=== PATIENT | male | born 1990 | race American Indian/Alaskan Native ===

== ENCOUNTER 2016-08-16 08:13 | Emergency (ER) | payer SELFPAY ==
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
[2016-08-16] MEDS ORDERED: MOTRIN PO ONE (11:16)
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
[2016-08-16 12:55] VITALS: BP 119/75
== END 2016-08-16 12:56 | disposition home or self-care (01) ==
LOC: ED 08:13
DX: H57.12 Ocular pain, left eye (principal); I10 Essential (primary) hypertension; F41.9 Anxiety disorder, unspecified; L63.9 Alopecia areata, unspecified; Y04.2XXA Assault by strike against or bumped into by another person, initial encounter; Y93.89 Activity, other specified; Y99.9 Unspecified external cause status; Y92.89 Other specified places as the place of occurrence of the external cause
CPT/HCPCS: 70150; 99284

== ENCOUNTER 2018-10-01 22:31 | Emergency (ER) | payer OTHER ==
[2018-10-02] MEDS ORDERED: WATER FOR INJ (PF) ONE (00:14)
[2018-10-02] MEDS ORDERED: GEODON IM ONE ×3 (00:14→00:34)
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
[2018-10-02 01:06] LABS: Hematocrit 38.6 % (35.5-45.6); Mean Corpuscular HGB Conc 34 % (32-34); Mean Corpuscular Volume 91 fl (84-94); Platelet Count 246 K/mm3 (140-440); Red Blood Count 4.23 M/mm3 (3.65-5.03); Red Cell Distribution Width 13.9 % (13.2-15.2)
[2018-10-02 01:27] LABS: Alanine Aminotransferase 39 units/L (7-56); Albumin 4.5 g/dL (3.9-5); BUN/Creatinine Ratio 24; Blood Urea Nitrogen 22 mg/dL (9-20); Calcium 8.8 mg/dL (8.4-10.2); Hemolysis Index 26
[2018-10-02 03:54] LABS: Bilirubin,Urine NEG (Negative); Blood,Urine NEG (Negative); Color,Urine Yellow (Yellow); Mucus,Urine 1+ /HPF; Urobilinogen,Urine < 2.0 mg/dL (<2.0)
[2018-10-02 04:01] LABS: Amphetamine Screen,Urine PRESUMPTIVE NEGATIVE; Benzodiazepines Screen,Urine PRESUMPTIVE NEGATIVE; Cocaine Screen,Urine PRESUMPTIVE NEGATIVE; Methadone Screen,Urine PRESUMPTIVE NEGATIVE; Opiate Screen,Urine PRESUMPTIVE NEGATIVE
[2018-10-02 04:22] LABS: Cannabinoid Screen,Urine PRESUMPTIVE POSITIVE
[2018-10-02 10:56] LABS: Anisocytosis 1+; Band Neutrophils # (Manual) 0.2 K/mm3; Basophils % (Manual) 0 % (0.0-1.8); Macrocytosis 1+; Platelet Estimate Consistent w Auto; Total Cells Counted 100
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
[2018-10-02] MEDS ORDERED: TYLENOL PO ONE (22:52)
[2018-10-03] MEDS ORDERED: TYLENOL PO ONE (08:22)
[2018-10-03] MEDS ORDERED: IBUPROFEN PO ONE (12:59)
--- NOTE | 2018-10-03 14:19 | XRay Report ---
EXAM: XR SHOULDER 2+V RT HISTORY: C/O right shoulder pain TECHNIQUE: 3 views COMPARISON: None available. FINDINGS: There is no acute bony fracture, or joint subluxation or dislocation seen. No evidence for inflammat ory or degenerative arthritis is seen. The glenohumeral joint and acromioclavicular joint are intact. No focal bone erosion or sclerosis is seen. No soft tissue emphysema, radiodense soft tissue abnorm ality or foreign body is seen. No incidental apical lung infiltrate, contusion, or pneumothorax is se en. IMPRESSION: 1. No acute bony fracture, or joint subluxation or dislocation seen. 2. No radiodense soft tissue abnormality or foreign body seen. This document is electronically signed by Amber Lee MD., October 03 2018 02:17:02 PM ET
[2018-10-03] MEDS ORDERED: IBUPROFEN ONE (16:01)
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
[2018-10-05] MEDS ORDERED: IBUPROFEN PO ONE (00:22)
[2018-10-05 08:10] VITALS: BP 113/69
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
== END 2018-10-05 10:35 ==
LOC: ED 22:31
DX: R45.850 Homicidal ideations (principal); R45.1 Restlessness and agitation; F41.9 Anxiety disorder, unspecified; F12.10 Cannabis abuse, uncomplicated
CPT/HCPCS: 36415; 73030; 80053; 80307; 81001; 85007; 85025; 96372; 99285; G0480; J3486; 80320